=== PATIENT | male | born 1950 | race Caucasian/White ===

== ENCOUNTER 2023-01-31 04:53 | Day surgery (SDC) | payer OTHER, BC ==
[2023-01-26 12:09] VITALS: BMI 26.7
[2023-01-31 08:39] VITALS: TEMP 97.2
[2023-01-31 09:14] VITALS: PULSE 53
[2023-01-31 09:16] VITALS: BP 126/65; RESP 12
== END 2023-01-31 09:29 | disposition home or self-care (01) ==
LOC: JASU-ENDO 04:53
PROVIDERS: ATTEND Internal Medicine Gastroenterology
PROC: 0DJD8ZZ Inspection of Lower Intestinal Tract, Via Natural or Artificial Opening Endoscopic (ICD-10-PCS; principal; 2023-01-31 08:00)
DX: Z12.11 Encounter for screening for malignant neoplasm of colon (principal); K57.30 Diverticulosis of large intestine without perforation or abscess without bleeding; Z86.010 Personal history of colon polyps; K64.8 Other hemorrhoids

== ENCOUNTER 2023-07-15 14:43 | Emergency (ER) | payer OTHER, BC ==
[2023-07-15 14:56] VITALS: BP 149/74; PULSE 62; RESP 16; TEMP 98.4; BMI 25.7
== END 2023-07-15 16:15 | disposition home or self-care (01) ==
LOC: FER 14:43
PROC: 0H91XZZ Drainage of Face Skin, External Approach (ICD-10-PCS; principal; 2023-07-15)
DX: L02.01 Cutaneous abscess of face (principal); R22.0 Localized swelling, mass and lump, head; R51.9 Headache, unspecified; L29.9 Pruritus, unspecified
CPT/HCPCS: 99283-25